=== PATIENT | female | born 2005 | race Caucasian/White ===

== ENCOUNTER 2024-01-18 04:16 | Inpatient (IN) | payer SELFPAY ==
[~2024-01-18] VITALS: Ht 157.5 cm; Wt 74.8 kg
[2024-01-18] VITALS (16 sets, daily range): BP systolic 116–159; BP diastolic 56–89; PULSE 60–110; TEMP 97.5–98.9
[2024-01-18] MEDS ORDERED: Ondansetron 4 MG/2 ML VIAL IV PRN ×2 (05:00→06:45)
[2024-01-18] MEDS ORDERED: LR 1,000 ML IV SCH ×2 (05:00→06:45)
--- NOTE | 2024-01-18 05:00 | NUR ---
Patient arrived to room 348 via stretcher from Outside ED. Oriented to room and policy. Amission assessment complete. 20g INT to right forearm flushes without difficulty-no s/s of infiltration. Rating pain 7/10 on pain scale to middle abdomen described as cramp/dull ache. Also dry heaving. VS currently stable. Dr Chauhan notified of arrival and orders initiated. Will monitor.
[2024-01-18] MEDS ORDERED: Morphine 4 MG/ML VIAL IV PRN (05:15)
--- NOTE | 2024-01-18 05:35 | NUR ---
Dr Chauhan at bedside.
--- NOTE | 2024-01-18 05:57 | NUR ---
Consent form signed both for procedure and anesthesia. Patient denies questions/concerns.
--- NOTE | 2024-01-18 06:28 | NUR ---
Patient to OR at this time via bed
[2024-01-18] MEDS ORDERED: Rocuronium 50 MG/5 ML Multi-Dose VIAL ONE (06:33)
[2024-01-18] MEDS ORDERED: NS 10 ML IV ONE (06:34)
[2024-01-18] MEDS ORDERED: dexAMETHasone 10 MG/ML VIAL ONE (06:34)
[2024-01-18] MEDS ORDERED: Ketorolac 30 MG/ML VIAL ONE (06:34)
[2024-01-18] MEDS ORDERED: Glycopyrrolate 0.2 MG/ML 1 ML VIAL ONE (06:34)
[2024-01-18] MEDS ORDERED: fentaNYL 50 MCG/ML 2 ML VIAL ONE ×2 (06:34→07:32)
[2024-01-18] MEDS ORDERED: Ondansetron 4 MG/2 ML VIAL ONE (06:34)
[2024-01-18] MEDS ORDERED: Lidocaine PF 2% (20 MG/ML) 5 ML VIAL ONE (06:34)
[2024-01-18] MEDS ORDERED: fentaNYL 50 MCG/ML 1 ML SYRINGE/VIAL [PACU/SDC ONLY] IV PRN (06:45)
[2024-01-18] MEDS ORDERED: hydrALAZINE 20 MG/ML 1 ML VIAL IV PRN (06:45)
[2024-01-18] MEDS ORDERED: HYDROmorphone 1 MG/1 ML SYRINGE [PACU/SDC ONLY] IV PRN (06:45)
[2024-01-18] MEDS ORDERED: droPERidol 2.5 MG/ML 2 ML VIAL IV PRN (06:45)
--- NOTE | 2024-01-18 09:20 | NUR ---
Patient has returned post op. Up to the bathroom to void, elevated pain with activity. Morley given with a snack. Abdominal lap site x3 with bandaids CDI
--- NOTE | 2024-01-18 09:30 | NUR ---
SW met with patient to complete intake and discuss discharge planning. Patient confirmed that she resides in [place] with her fiance. She reports no current DMEs and independent with ADLs. Patient reports that her previously PCP left she is reviewing another provider at this time. SW offered list, she declined. Patient reports her pharmacy is [facility] in [place]. Patient confirmed that her next of kin is her father Charles Farmer ([phone]). Patient does not have DPOA was provided information, does not wish to complete forms at this time. Patient is aniticipating to discharge home, pending any further medical recommendations at this time.
--- NOTE | 2024-01-18 11:15 | NUR ---
Patient reports being very nauseated & pain again elevated. She reports being hot. Afebrile. Blankets removed. Medications as ordered. Heart rate noted to be irregular and tachycardia at times. animal humane agent supervisor made aware.
--- NOTE | 2024-01-18 12:20 | NUR ---
Icu nurse rounded and agreed with assessment. Ekg ordered per ICU charge nurse. EKG reviewed. casino operations supervisor aware.
--- NOTE | 2024-01-18 12:55 | NUR ---
Data: Patient stated she was nauseous so declined spiritiual care visit; however, Patient did accept prayer. Assessment: desire prayer Plan of Care: Technical Services Assistant offered a prayer for healing. Chaplains will remain available as needed requested while Patient is admitted to this hospital.
--- NOTE | 2024-01-18 13:36 | NUR ---
Patient has been resting in room. She reports overall feeling better, she is wanting to continue to rest
[2024-01-18] MEDS ORDERED: NORCO 325 MG-51 TAB PO (14:37)
--- NOTE | 2024-01-18 15:30 | NUR ---
ROUNDED. DISCHARGE ORDERS OBTAINED. PATIENT FEELING BETTER AND READY FOR DISCHARGE. NORCO FOR PAIN REQUESTED. TOLERATED DINNER TRAY WITHOUT NAUSEA. INT DC. PATIENT AWAITNG RIDE.
--- NOTE | 2024-01-18 15:45 | NUR ---
ride here, patient wheeled out with all belongings.
== END 2024-01-18 16:09 | disposition home or self-care (01) | DRG 399 ==
LOC: SURG 04:16
PROVIDERS: ADMIT Surgery
PROC: 0DTJ4ZZ Resection of Appendix, Percutaneous Endoscopic Approach (ICD-10-PCS; principal; 2024-01-18 07:00)
DX: K35.80 Unspecified acute appendicitis (principal); Z87.891 Personal history of nicotine dependence
CPT/HCPCS: J0690; J1100; J1885; J2270; J2405; J2704; J3010; J7120

== ENCOUNTER 2024-01-19 15:17 | Observation (INO) | payer SELFPAY ==
[~2024-01-19] VITALS: Ht 157.5 cm; Wt 74.5 kg
[2024-01-19] VITALS: BP 146/79; PULSE 59; TEMP 98
[~2024-01-19 15:17] MED LIST: NORCO 325 MG-51 TAB PO
--- NOTE | 2024-01-19 17:20 | NUR ---
Patient arrive to the surgical unit R350, alert and orinted x 4, still with nausea. Transfer herself to bed. States her pain is 6/10.
--- NOTE | 2024-01-19 17:26 | NUR ---
1515: DR. WEST FROM [facility] ED CALLED REQUESTING TRANSFER FOR PATIENT WHO RECEIVED A LAP APPY AT OUR FACILITY YESTERDAY (01/17). DR. WEST SPOKE WITH DR. MCCAULEY WHO ACCEPTS PATIENT FOR OBSERVATION STATUS. PATIENT WILL COME VIA [facility].
--- NOTE | 2024-01-19 17:39 | NUR ---
Patient continues with nausea. Abdomen distended not guarding but states pain with touch specially un righ side. Assessment intake completed.
[2024-01-19 17:46] VITALS: BP 165/80; PULSE 69; TEMP 98.7
[2024-01-19 17:47] VITALS: BP_SYST 165
--- NOTE | 2024-01-19 17:57 | NUR ---
Call placed to Dr. Chauhan to confirm pt in room and intake done. Reports he will come to see her soon.
[2024-01-19] MEDS ORDERED: Ondansetron 4 MG/2 ML VIAL IV PRN (18:30)
[2024-01-19] MEDS ORDERED: Morphine 4 MG/ML VIAL IV PRN (18:45)
[2024-01-19] MEDS ORDERED: NS & 40 mEq KCl 1,000 ML IV SCH (18:45)
--- NOTE | 2024-01-19 19:15 | NUR ---
Receiced report from day shift nurse. Pt is resting in bed with boyfriend at bedside. Pt is alert and moves independently in the room. Pt does not look in distress at this time. IVF's running at this time. Call light within reach. Will continue to pt care.
[2024-01-19 19:41] VITALS: BP 149/73; PULSE 64; TEMP 98.1
[2024-01-19 21:00] VITALS: BP_SYST 149
[2024-01-19 22:45] LABS: HEMOGLOBIN 10.1 g/dl (12.0-15.0)
[2024-01-19 22:46] LABS: HEMATOCRIT 27.9 % (35.0-45.0)
[2024-01-20] VITALS (7 sets, daily range): BP systolic 124–146; BP diastolic 63–79; PULSE 59–75; TEMP 98–98.5
--- NOTE | 2024-01-20 06:46 | NUR ---
Pt had an uneventful night. IVF's running at this time. Pt had complaints of pain about q2hrs and pain meds were given per EMAR and nausea and meds were given per EMAR. Pt is currently resting in bed at this time with the call light within reach. Will give report to day shift nurse.
[2024-01-20 06:57] LABS: BASO % 0.2 % (0.0-2.0); EOS % 0.3 % (0.0-4.0); GRAN # 9.5 K/mm3 (1.4-6.5); GRAN % 71.3 % (42.2-75.2); HEMOGLOBIN 10.4 g/dl (12.0-15.0); LYMPH # 2.7 K/mm3 (1.2-3.4); LYMPH % 20.6 % (20.0-51.0); MEAN CELL VOLUME 87 fl (80.0-95.0); MEAN CORPUSCULAR HEMOGLOBIN 31 pg (26-32); MEAN CORPUSCULAR HGB CONC 36 g/dl (33.0-37.0); MEAN PLATELET VOLUME 10.6 fl (7.4-10.4); MONO % 7.2 % (1.7-9.3); PLATELET COUNT 231 K/mm3 (130-400); RED BLOOD COUNT 3.36 M/mm3 (4.10-5.30); REDCELL DISTRIBUTION WIDTH-CV 12.5 % (11.5-14.5)
[2024-01-20 07:03] LABS: HEMATOCRIT 29.2 % (35.0-45.0)
[2024-01-20 07:10] LABS: CALCIUM 8.8 mg/dL (8.4-10.2); CREATININE, serum 0.72 mg/dL (0.57-1.11); POTASSIUM 3.7 mEq/L (3.5-4.5)
--- NOTE | 2024-01-20 08:23 | NUR ---
Patient called for pain and nausea medication. Pain /. Meds provided. She continues getting fluids per orders. She ordered breakfast. Assessment completed. She asked about her HGB results, provided. No further needs at this time. Call light within reach.
[2024-01-20] MEDS ORDERED: Influenza Virus Vaccine, Trivalent '24-25 0.5 ML SYRINGE IM SCH (09:00)
--- NOTE | 2024-01-20 12:31 | NUR ---
D: Assignment Agent stopped by room on rounds. A: Pt was resting and content with fiance and friend in the room. Pt has no needs right now. P: Assignment Agent informed pt that if she needed anything from the air and missile defense crewmember area to let her nurse know. Assignment Agent will follow up as needed.
[2024-01-20] MEDS ORDERED: NORCO 325 MG-51 TAB PO (12:33)
[2024-01-20] MEDS ORDERED: ZOFRAN 4MG T4 MG/TAB PO (12:48)
--- NOTE | 2024-01-20 12:50 | NUR ---
wire preparation worker met with pt to discuss intake information. She reports to live with her fiance in [place]. She does not have a PCP. SW provided PCP list and provided information on the [facility]. Pt was receptive to this information. She confirmed to not have insurance and was agreeable to meeting with dental financial coordinator, Louise. Pt obtains medications from [facility] with difficulties. SW provided [facility] card and explained its purpose. SW informed her to be transparent with providers to obtain assistance with coupons/samples or low cost medications. She is independent with ADLS and uses no DME. She does not have a DPOA-HC and is agreeable to parents being NOK. Her father is Charles [phone]. She expressed no other needs to ANISH at this time. Discharge Plan: home
--- NOTE | 2024-01-20 14:13 | NUR ---
Patient was provided with discharge information, all questions answered.
== END 2024-01-20 16:30 | disposition home or self-care (01) ==
LOC: SURG 15:17
PROVIDERS: ADMIT Surgery
DX: K91.0 Vomiting following gastrointestinal surgery (principal); D62 Acute posthemorrhagic anemia; E87.6 Hypokalemia; F17.290 Nicotine dependence, other tobacco product, uncomplicated; Z90.89 Acquired absence of other organs
CPT/HCPCS: G0378; G0379; J2270; J2405; J3480